=== PATIENT | female | born 1970 | race Caucasian/White ===

== ENCOUNTER 2023-03-17 18:30 | Emergency (ER) | payer BC, SELFPAY ==
[2023-03-17 18:31] VITALS: BP 117/70; PULSE 61; RESP 18
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
--- NOTE | 2023-03-17 18:45 | RT.EKG_ITS ---
APPROVED REPORT Exam: Resting ECG Reason for Exam: fall, pain Patient Location: E HR:59 bpm ECG Measurements Heart Rate 59 AXIS MT 156 P 47 QRSd 95 QRS 73 QT 435 T 49 QTc 430 Conclusion Sinus bradycardia...rate< 60 Probable left atrial enlargement...P >50mS, <-0.10mV V1 Left ventricular hypertrophy...multiple voltage criteria
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
[2023-03-17] MEDS: Normal Saline - Diluent 50 ML VIAL IJ (19:28)
[2023-03-17] MEDS: Omnipaque 350 MG/ML 100 ML BTL IJ (19:28)
[2023-03-17 19:39] LABS: Abs Immature Grans 0.04 10^3/uL (0.0-0.06); Absolute Basophil Count 0.03 10^3/uL (0.0-0.2); Absolute Lymphocyte Count 1.47 10^3/uL (1.2-3.4); Absolute Monocyte Count 0.58 10^3/uL (0.1-0.8); Basophils % 0.2; Eosinophils % 0.1; HCT 42.4 % (36.0-46.0); HGB 14.4 g/dL (11.2-15.7); Immature Grans % 0.3; Lymphocytes % 10.9; MCH 31.9 pg (27.0-33.0); MCV 94 fL (80-95); MPV 9.5 fL (8.0-11.0); Monocytes % 4.3; Neutrophils % 84.2; Platelet Count 209 10^3/uL (130-400); RBC 4.52 10^6/uL (3.93-5.22); RDW 12.2 % (11.7-14.6); RDW-SD 42.2 fL; WBC 13.46 10^3/uL (4.4-10.8)
[2023-03-17 19:42] LABS: Absolute Eosinophil Count 0.01 10^3/uL (0.0-0.7); Absolute Neutrophil Count 11.33 10^3/uL (1.2-6.7)
[2023-03-17 20:03] LABS: ALT 34 U/L (14-59); AST 32 U/L (15-37); Albumin 3.9 g/dL (3.4-5.0); Alkaline Phosphatase 72 U/L (46-116); Anion Gap 6.5 mmol/L (3-11); BUN 20 mg/dL (7-18); Bilirubin, Total 0.3 mg/dL (0.2-1.0); CO2 30.5 mmol/L (21.0-32.0); CREATININE 0.8 mg/dL (0.55-1.02); Calcium 9.1 mg/dL (8.5-10.1); Chloride 102 mmol/L (98-107); Glucose 102 mg/dL (74-106); Potassium 4.2 mmol/L (3.5-5.1); Sodium 139 mmol/L (136-145); Total Protein 7.6 g/dL (6.4-8.2)
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
[2023-03-17] MEDS: fentaNYL 100 MCG/2 ML VIAL 50 MCG IVP ×2 (20:20→20:51)
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
[2023-03-17] MEDS: Ondansetron O.D.T. 4 MG TABEF, 3 TABS/BTL PO (21:57)
[2023-03-17 21:59] VITALS: BP 117/70; PULSE 62; RESP 18; O2SAT 97
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
== END 2023-03-17 22:03 | disposition home or self-care (01) ==
LOC: ER 23:12
PROVIDERS: Emergency Provider Physician Assistant; PCP Family Medicine
DX: S42.002A Fracture of unspecified part of left clavicle, initial encounter for closed fracture (principal); V19.3XXA Pedal cyclist (driver) (passenger) injured in unspecified nontraffic accident, initial encounter; R07.89 Other chest pain
CPT/HCPCS: 36415; 74177; 80053; 93005; 96374; 96376; 99285; 70450; 71260; 72125; 73000; 85025; 93010; 99284; J3010; J3490